=== PATIENT | male | born 1930 | race Caucasian/White ===

== ENCOUNTER 2016-12-01 17:05 | Emergency (ER) | payer MEDICARE, BC ==
[~2016-12-01] VITALS: Ht 180.3 cm; Wt 81.6 kg
[2016-12-01] MEDS ORDERED: SYNT50TA PO (17:14)
[2016-12-01] MEDS ORDERED: ZINC10LO4 MT (17:14)
[2016-12-01] MEDS ORDERED: MULTTAB23 PO (17:14)
[2016-12-01] MEDS ORDERED: NEXI20CA PO (17:14)
[2016-12-01] MEDS ORDERED: WELC625T PO (17:14)
[2016-12-01] MEDS ORDERED: METO-207 PO (17:14)
[2016-12-01 17:55] LABS: BASO % 0.5 % (0.0-1.0); EOS # 0.2 K/mm3 (0.0-0.50); EOS % 2.4 % (0.0-3.0); LARGE UNSTAINED CELL # 0.1 K/mm3 (0.0-0.4); LARGE UNSTAINED CELL % 1.5 % (0.0-4.0); LYMPH # 1.2 K/mm3 (1.5-4.5); LYMPH % 14.7 % (24.0-44.0); MEAN CORPUSCULAR HEMOGLOBIN 32.7 pg (27.0-33.0); MEAN CORPUSCULAR HGB CONC 32.8 g/dl (32.0-36.5); MEAN CORPUSCULAR VOLUME 99.6 fl (80.0-96.0); MONO # 0.6 K/mm3 (0.0-0.8); MONO % 7.5 % (0.0-5.0); NEUTROPHILS # 5.9 K/mm3 (1.8-7.7); NEUTROPHILS % 73.4 % (36.0-66.0); PLATELET COUNT, AUTOMATED 203 k/mm3 (150-450); RED CELL DISTRIBUTION WIDTH 13.5 % (11.5-14.5)
[2016-12-01 18:06] LABS: ANION GAP 5 MEQ/L (8-16); BLOOD UREA NITROGEN 23 MG/DL (7-18); CALCIUM LEVEL 8.6 MG/DL (8.8-10.2); CARBON DIOXIDE LEVEL 30 MEQ/L (21-32); CHLORIDE LEVEL 108 MEQ/L (98-107); CREATININE FOR GFR 1.16 MG/DL (0.70-1.30); GLOMERULAR FILTRATION RATE > 60.0 (>35); GLUCOSE, FASTING 101 MG/DL (83-110); MAGNESIUM LEVEL 2.1 MG/DL (1.8-2.4); PHOSPHORUS LEVEL 3.7 MG/DL (2.5-4.9); POTASSIUM SERUM 4.4 MEQ/L (3.5-5.1); SODIUM LEVEL 143 MEQ/L (136-145)
--- NOTE | 2016-12-01 18:40 | REP ---
Clinical: Chest pain. Technique: PA and lateral. Comparison: 02/11/2016. Findings: Mediastinum and cardiac silhouette are stable. Lung carpio demonstrate chronic stable changes. No focal consolidation, effusion, or pneumothorax. Double structures demonstrate age-related degenerative changes. Impression: Chronic stable changes. No acute cardiopulmonary process. Signed by Ole Rodriguez MD 12/01/2016 06:31 P
[2016-12-01 19:53] VITALS: BP 127/75
--- NOTE | 2016-12-02 19:56 | ECGEPIP ---
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
== END 2016-12-01 19:58 | disposition home or self-care (01) ==
LOC: M ED 18:24
DX: R00.2 Palpitations (principal); I10 Essential (primary) hypertension; I48.91 Unspecified atrial fibrillation; E78.5 Hyperlipidemia, unspecified; M06.9 Rheumatoid arthritis, unspecified; C61 Malignant neoplasm of prostate; Z79.899 Other long term (current) drug therapy

== ENCOUNTER 2016-12-10 16:09 | Emergency (ER) | payer MEDICARE, BC ==
[~2016-12-10] VITALS: Ht 180.3 cm; Wt 77.1 kg
[~2016-12-10 16:09] MED LIST: METO-207 PO; MULTTAB23 PO; NEXI20CA PO; SYNT50TA PO; WELC625T PO; ZINC10LO4 MT
[2016-12-10 17:31] VITALS: BP 114/71
--- NOTE | 2016-12-11 07:29 | ECGEPIP ---
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
== END 2016-12-10 17:51 | disposition home or self-care (01) ==
LOC: M ED 17:25
DX: I48.91 Unspecified atrial fibrillation (principal); E03.9 Hypothyroidism, unspecified; K21.9 Gastro-esophageal reflux disease without esophagitis; Z85.46 Personal history of malignant neoplasm of prostate; Z79.899 Other long term (current) drug therapy